=== PATIENT | female | born 1935 | race Caucasian/White ===

== ENCOUNTER 2021-09-14 11:13 | Inpatient (IN) ==
[2021-09-14] MEDS ORDERED: Tranexamic Acid 1,000 MG/10 ML VIAL ONE ×2 (11:27→13:23)
[2021-09-14] MEDS ORDERED: *HR* Midazolam HCl 2 MG/2 ML VIAL ONE (11:28)
[2021-09-14] MEDS ORDERED: *HR* FentaNYL (PF) 100 MCG/2 ML VIAL ONE (11:28)
[2021-09-14] MEDS ORDERED: Lidocaine -MPF 2% 2 ML VIAL ONE (11:29)
[2021-09-14] MEDS ORDERED: Famotidine 20 MG/2 ML VIAL IVP ONE (11:30)
[2021-09-14] MEDS ORDERED: Acetaminophen IV 1,000 MG/100 ML BAG IVPB ONE (11:30)
[2021-09-14] MEDS ORDERED: Ondansetron 4 MG/2 ML VIAL IVP PRN ×3 (11:44→17:48)
[2021-09-14] MEDS ORDERED: CeFAZolin Syr 2,000MG/20 ML 2,000 MG/20 ML SYRINGE IVPB ONE (11:47)
[2021-09-14] MEDS ORDERED: Ringers Solution, Lactated 1,000 ML IVC SCH (12:00)
[2021-09-14] MEDS ORDERED: Ropivacaine/PF 0.5% 30 ML VIAL ONE ×2 (12:14→12:15)
[2021-09-14] MEDS ORDERED: Ondansetron 4 MG/2 ML VIAL ONE (13:21)
[2021-09-14] MEDS ORDERED: TOTAL JOINT MIXTURE (100ML) INTRAART ONE (13:30)
[2021-09-14] MEDS ORDERED: Povidone-Iodine 45 ML, Sodium Chloride IRRigation 1,000 ML IR ONE (13:30)
[2021-09-14] MEDS ORDERED: *HR* Propofol 200 MG/20 ML VIAL IVP ONE (14:38)
[2021-09-14] MEDS: *HR* FentaNYL (PF) 100 MCG/2 ML VIAL IVP PRN ×4 (15:56→16:16)
[2021-09-14] MEDS ORDERED: Albuterol 2.5 MG/3 ML NEBULIZER ONE (16:15)
[2021-09-14] MEDS ORDERED: Ipratropium/Albuterol Neb 3 ML IH ONE (16:19)
[2021-09-14] MEDS ORDERED: Ipratropium/Albuterol Neb 3 ML ONE (16:21)
[2021-09-14] MEDS: *HR* HYDROmorphone PF 0.5 MG/0.5 ML SYRINGE IVP PRN ×3 (16:23→16:46)
[2021-09-14] MEDS ORDERED: *HR* OxyCODONE Immed Rel 5 MG TABLET PO PRN ×2 (16:47→17:48)
[2021-09-14] MEDS ORDERED: Sennosides 8.6 MG TABLET PO PRN (17:48)
[2021-09-14] MEDS ORDERED: MOM Conc 10 ML UD.LIQ PO PRN (17:48)
[2021-09-14] MEDS ORDERED: Fluticasone Propionate Nasal 50 MCG/SPRAY BOTTLE NS PRN (17:48)
[2021-09-14] MEDS ORDERED: *HR* Promethazine 25 MG/ML VIAL IM PRN (17:48)
[2021-09-14] MEDS ORDERED: Naloxone 0.4 MG/ML INJ IVP PRN (17:48)
[2021-09-14] MEDS ORDERED: *HR* HYDROmorphone (PF) 1 MG/ML SYRINGE IVP PRN (17:48)
[2021-09-14] MEDS: Ringers Solution, Lactated 1,000 ML IVC SCH (18:49)
[2021-09-14] MEDS: Ascorbic Acid 500 MG TABLET PO SCH (18:50)
[2021-09-14] MEDS: lisinopriL 20 MG TABLET PO SCH ×2 (20:44→20:50)
[2021-09-14] MEDS: CeFAZolin 2 GM/120 ML BAG IVPB SCH (20:45)
[2021-09-14] MEDS: clonazePAM 0.5 MG TABLET PO SCH (23:26)
[2021-09-15] MEDS: CeFAZolin 2 GM/120 ML BAG IVPB SCH (05:15)
[2021-09-15 06:08] LABS: Hematocrit 32.8 % (35.3-44.9); Hemoglobin 10.5 g/dL (11.5-15.4); Immature Granulocytes % 0.3 % (0-4); Lymphocytes # 0.7 K/mcL (0.6-4.6); Lymphocytes % 6.1 %; Mean Platelet Volume 9.3 fL (9.4-12.4); Monocytes # 0.6 K/mcL (0.0-1.3); Monocytes % 5.4 %; Neutrophils # 10.2 K/mcL (1.6-8.9); Platelet Count 251 K/mcL (140-400); Red Blood Count 3.28 M/mcL (3.82-4.97); Red Cell Distribution Width 12.5 % (11.5-14.5); Segmented Neutrophils % 88.2 %; White Blood Count 11.6 K/mcL (4.3-11.1)
[2021-09-15 06:28] LABS: Calcium 8.6 mg/dL (8.6-10.3); Potassium 4.9 mEq/L (3.5-5.1)
[2021-09-15] MEDS: Loratadine 10 MG TABLET PO SCH (08:12)
[2021-09-15] MEDS: Ascorbic Acid 500 MG TABLET PO SCH ×2 (08:12→18:05)
[2021-09-15] MEDS: clonazePAM 0.5 MG TABLET PO SCH (08:13)
[2021-09-15] MEDS: Multivit/Ca/Min/Fe/FA 1 TAB TABLET PO SCH (08:13)
[2021-09-15] MEDS: Metoprolol XL (24 HR) Succ 50 MG TAB.ER.24H PO SCH (08:13)
[2021-09-15] MEDS: amLODIPine 5 MG TABLET PO SCH ×2 (08:13→08:37)
[2021-09-15] MEDS: Fenofibrate 54 MG TABLET PO SCH (08:14)
[2021-09-15] MEDS: lisinopriL 20 MG TABLET PO SCH ×3 (08:14→21:44)
[2021-09-15] MEDS: PARoxetine 10 MG TABLET PO SCH (08:21)
[2021-09-15] MEDS ORDERED: Loratadine 10 MG TABLET PO SCH (09:00)
[2021-09-15] MEDS: Ringers Solution, Lactated 1,000 ML IVC SCH (11:10)
[2021-09-15] MEDS: *HR* OxyCODONE Immed Rel 5 MG TABLET PO PRN ×2 (11:28→18:50)
[2021-09-15] MEDS ORDERED: clonazePAM 0.5 MG TABLET PO SCH (21:00)
[2021-09-15] MEDS: Aspirin Enteric Coated 325 MG Tablet PO SCH (21:44)
[2021-09-16 03:39] LABS: Basophils % 0.1 %; Hematocrit 28.3 % (35.3-44.9); Hemoglobin 9.6 g/dL (11.5-15.4); Immature Granulocytes % 0.4 % (0-4); Lymphocytes # 1.7 K/mcL (0.6-4.6); Lymphocytes % 16.1 %; Mean Corpuscular HGB Conc 33.9 g/dL (31.6-35.5); Mean Corpuscular Hemoglobin 33.1 pg (28.0-33.3); Mean Corpuscular Volume 97.6 fL (83.0-100.0); Mean Platelet Volume 10.2 fL (9.4-12.4); Monocytes # 1.7 K/mcL (0.0-1.3); Monocytes % 16.4 %; Neutrophils # 6.9 K/mcL (1.6-8.9); Platelet Count 241 K/mcL (140-400); Red Cell Distribution Width 12.6 % (11.5-14.5); White Blood Count 10.3 K/mcL (4.3-11.1)
[2021-09-16 03:59] LABS: Potassium 4.3 mEq/L (3.5-5.1)
[2021-09-16] MEDS: Metoprolol XL (24 HR) Succ 50 MG TAB.ER.24H PO SCH (08:43)
[2021-09-16] MEDS: Fenofibrate 54 MG TABLET PO SCH (08:43)
[2021-09-16] MEDS: Aspirin Enteric Coated 325 MG Tablet PO SCH ×2 (08:43→21:21)
[2021-09-16] MEDS: PARoxetine 10 MG TABLET PO SCH (08:44)
[2021-09-16] MEDS: Loratadine 10 MG TABLET PO SCH (08:44)
[2021-09-16] MEDS: Multivit/Ca/Min/Fe/FA 1 TAB TABLET PO SCH (08:45)
[2021-09-16] MEDS: Ascorbic Acid 500 MG TABLET PO SCH ×2 (08:45→16:03)
[2021-09-16] MEDS: *HR* OxyCODONE Immed Rel 5 MG TABLET PO PRN ×3 (11:47→21:55)
[2021-09-16] MEDS: amLODIPine 5 MG TABLET PO SCH (13:34)
[2021-09-16] MEDS: lisinopriL 20 MG TABLET PO SCH ×2 (13:34→21:21)
[2021-09-16] MEDS: QUEtiapine Fumarate 25 MG TABLET PO SCH (21:21)
[2021-09-16] MEDS: clonazePAM 0.5 MG TABLET PO SCH (21:21)
[2021-09-17 09:23] LABS: Hematocrit 28.7 % (35.3-44.9); Hemoglobin 9.7 g/dL (11.5-15.4); Mean Corpuscular HGB Conc 33.8 g/dL (31.6-35.5); Mean Corpuscular Hemoglobin 32.8 pg (28.0-33.3); Mean Platelet Volume 9.8 fL (9.4-12.4); Platelet Count 250 K/mcL (140-400); Red Blood Count 2.96 M/mcL (3.82-4.97)
[2021-09-17 09:29] LABS: Calcium 9.3 mg/dL (8.6-10.3); Potassium 3.7 mEq/L (3.5-5.1)
[2021-09-17] MEDS: Aspirin Enteric Coated 325 MG Tablet PO SCH ×2 (10:18→20:33)
[2021-09-17] MEDS: Fenofibrate 54 MG TABLET PO SCH (10:18)
[2021-09-17] MEDS: Multivit/Ca/Min/Fe/FA 1 TAB TABLET PO SCH (10:19)
[2021-09-17] MEDS: clonazePAM 0.5 MG TABLET PO SCH (10:20)
[2021-09-17] MEDS: Metoprolol XL (24 HR) Succ 50 MG TAB.ER.24H PO SCH (10:20)
[2021-09-17] MEDS: PARoxetine 10 MG TABLET PO SCH (10:20)
[2021-09-17] MEDS: Loratadine 10 MG TABLET PO SCH (10:20)
[2021-09-17] MEDS: amLODIPine 5 MG TABLET PO SCH (10:20)
[2021-09-17] MEDS: lisinopriL 20 MG TABLET PO SCH ×2 (10:21→20:33)
[2021-09-17] MEDS: Ascorbic Acid 500 MG TABLET PO SCH ×2 (10:23→16:07)
[2021-09-17] MEDS: *HR* OxyCODONE Immed Rel 5 MG TABLET PO PRN ×2 (16:07→20:33)
[2021-09-17] MEDS: QUEtiapine Fumarate 25 MG TABLET PO SCH (20:33)
[2021-09-17 23:46] VITALS: O2SAT 91
[2021-09-18 05:31] LABS: Hematocrit 27.4 % (35.3-44.9); Hemoglobin 9.1 g/dL (11.5-15.4); Mean Corpuscular HGB Conc 33.2 g/dL (31.6-35.5); Mean Corpuscular Hemoglobin 32.7 pg (28.0-33.3); Mean Corpuscular Volume 98.6 fL (83.0-100.0); Mean Platelet Volume 9.8 fL (9.4-12.4); Platelet Count 253 K/mcL (140-400); Red Blood Count 2.78 M/mcL (3.82-4.97); Red Cell Distribution Width 13.2 % (11.5-14.5); White Blood Count 8.9 K/mcL (4.3-11.1)
[2021-09-18 05:44] LABS: Calcium 9.6 mg/dL (8.6-10.3)
[2021-09-18 07:47] VITALS: BP 122/65; PULSE 67; TEMP 98.4
[2021-09-18] MEDS: Loratadine 10 MG TABLET PO SCH (07:54)
[2021-09-18] MEDS: clonazePAM 0.5 MG TABLET PO SCH (07:54)
[2021-09-18] MEDS: Multivit/Ca/Min/Fe/FA 1 TAB TABLET PO SCH (07:54)
[2021-09-18] MEDS: Aspirin Enteric Coated 325 MG Tablet PO SCH (07:54)
[2021-09-18] MEDS: PARoxetine 10 MG TABLET PO SCH (07:55)
[2021-09-18] MEDS: Metoprolol XL (24 HR) Succ 50 MG TAB.ER.24H PO SCH (07:55)
[2021-09-18] MEDS: lisinopriL 20 MG TABLET PO SCH (07:55)
[2021-09-18] MEDS: Ascorbic Acid 500 MG TABLET PO SCH (07:55)
[2021-09-18] MEDS: Fenofibrate 54 MG TABLET PO SCH (07:55)
[2021-09-18] MEDS: amLODIPine 5 MG TABLET PO SCH (07:55)
[2021-09-18 11:12] LABS: Influenza A PCR Negative (Negative); Influenza B PCR Negative (Negative); Resp. Syncytial Virus PCR Negative (Negative); SARS-CoV-2 by PCR (In House) Negative (Negative)
== END 2021-09-18 14:05 | DRG 470 ==
LOC: SDCAOSI 11:13 → 4WAOSI 17:14
PROVIDERS: ADMIT Orthopaedic Surgery; ATTEND Orthopaedic Surgery